=== PATIENT | male | born 1960 | race Caucasian/White ===

== ENCOUNTER 2021-10-21 09:17 | Emergency (ER) | payer BC, MEDICAID ==
[~2021-10-21] VITALS: Ht 175.3 cm; Wt 75.0 kg
[~2021-10-21 09:17] MED LIST: ALBU6.7H9 INH; NO HOME MEDS
[2021-10-21 09:26] VITALS: BP 171/101
[2021-10-21 09:57] LABS: BASOPHILS % (AUTO) 0.3 % (0-1); EOSINOPHILS # (AUTO) 0.1 X10'3 (0-0.9); EOSINOPHILS % (AUTO) 0.7 % (0-6); HEMATOCRIT 36.3 % (42.0-52.0); HEMOGLOBIN 12.2 g/dl (14.0-17.9); LYMPHOCYTES # (AUTO) 0.9 X10'3 (1.1-4.8); LYMPHOCYTES % (AUTO) 10.9 % (21-51); MEAN CORPUSCULAR HEMOGLOBIN 28.2 PG (27.0-31.0); MEAN CORPUSCULAR HGB CONC 33.6 g/dL (33.0-36.5); MEAN CORPUSCULAR VOLUME 84.1 FL (78-98); MEAN PLATELET VOLUME 7.4 FL (7.4-10.4); MONOCYTES # (AUTO) 0.5 X10'3 (0-0.9); MONOCYTES % (AUTO) 6.6 % (2-12); NEUTROPHILS # (AUTO) 6.4 X10'3 (1.8-7.7); NEUTROPHILS % (AUTO) 81.5 % (42-75); PLATELET COUNT 220 X10'3 (140-440); RED BLOOD COUNT 4.32 X10'6 (4.70-6.10); RED CELL DISTRIBUTION WIDTH 14.1 % (11.5-14.5); WHITE BLOOD COUNT 7.8 X10'3 (4.5-11.0)
[2021-10-21 10:08] LABS: ALANINE AMINOTRANSFERASE 17 U/L (12-78); ALBUMIN/GLOBULIN RATIO 0.7 (1.1-1.5); ALKALINE PHOSPHATASE 141 IU/L (46-116); ANION GAP 10 (8-16); ASPARTATE AMINO TRANSFERASE 14 U/L (10-37); BILIRUBIN,TOTAL 0.6 MG/DL (0.1-1.0); BLOOD UREA NITROGEN 11 MG/DL (7-18); CALCIUM 9.2 MG/DL (8.5-10.1); CHLORIDE 101 MMOL/L (99-107); CREATININE 0.92 MG/DL (0.60-1.10); GLUCOSE 238 MG/DL (70-104); POTASSIUM 3.4 MMOL/L (3.5-5.1); SODIUM 140 MMOL/L (135-145); TOTAL CARBON DIOXIDE 28.9 MMOL/L (24-32); TOTAL PROTEIN 7.6 G/DL (6.4-8.2); eGFR 83 ML/MIN
[2021-10-21 10:23] LABS: MONOTEST NEGATIVE (Neg)
== END 2021-10-21 16:16 | disposition left against medical advice (07) ==
LOC: ER 09:18
DX: R22.1 Localized swelling, mass and lump, neck (principal); Z53.21 Procedure and treatment not carried out due to patient leaving prior to being seen by health care provider
CPT/HCPCS: 36415; 80053; 85025; 85651; 86140; 86308

== ENCOUNTER 2023-07-12 08:50 | Inpatient (IN) | payer BC, MEDICAID ==
[~2023-07-12] VITALS: Ht 175.3 cm; Wt 70.0 kg
[~2023-07-12 08:50] MED LIST changes: +ALBU6.7H14 INH; -ALBU6.7H9 INH
[2023-07-12] MEDS ORDERED: TETanus/Pertussis (Acell)/Diphther VAC/PF (Tdap-Adult) 0.5ml syringe IMVAC ONE (12:10)
[2023-07-12] MEDS ORDERED: piperacillin/tazo 3.375gm/50ml 50 ML IV STA (12:45)
[2023-07-12] MEDS ORDERED: normal saline 1000ml 1,000 ML IV ONE ×2 (12:45→21:10)
[2023-07-12] MEDS ORDERED: vancomycin/NS 1 GM ADD-VANTAGE 250 ML X 1 DOSE IV ONE (12:55)
[2023-07-12] MEDS ORDERED: ketorolac trometh. 30mg/ml inj. IV ONE (13:05)
[2023-07-12 13:24] LABS: BASOPHILS % (AUTO) 0 % (0-1); EOSINOPHILS % (AUTO) 0.1 % (0-6); HEMATOCRIT 27.4 % (42.0-52.0); HEMOGLOBIN 8.9 g/dl (14.0-17.9); LYMPHOCYTES # (AUTO) 0.5 X10'3 (1.1-4.8); LYMPHOCYTES % (AUTO) 2.4 % (21-51); MEAN CORPUSCULAR HEMOGLOBIN 27.4 PG (27.0-31.0); MEAN CORPUSCULAR HGB CONC 32.4 g/dL (33.0-36.5); MEAN CORPUSCULAR VOLUME 84.6 FL (78-98); MEAN PLATELET VOLUME 6.6 FL (7.4-10.4); MONOCYTES # (AUTO) 0.6 X10'3 (0-0.9); MONOCYTES % (AUTO) 2.8 % (2-12); NEUTROPHILS # (AUTO) 21.2 X10'3 (1.8-7.7); NEUTROPHILS % (AUTO) 94.7 % (42-75); PLATELET COUNT 455 X10'3 (140-440); RED BLOOD COUNT 3.24 X10'6 (4.70-6.10); RED CELL DISTRIBUTION WIDTH 14.6 % (11.5-14.5); WHITE BLOOD COUNT 22.4 X10'3 (4.5-11.0)
[2023-07-12 14:03] LABS: ALANINE AMINOTRANSFERASE 13 U/L (12-78); ALBUMIN 1.7 G/DL (3.4-5.0); ALBUMIN/GLOBULIN RATIO 0.2 (1.1-1.5); ALKALINE PHOSPHATASE 166 IU/L (46-116); ANION GAP 6 (8-16); ASPARTATE AMINO TRANSFERASE 25 U/L (10-37); BILIRUBIN,TOTAL 0.4 MG/DL (0.1-1.0); BLOOD UREA NITROGEN 25 MG/DL (7-18); BUN/CREATININE RATIO 14.8 (10.0-20.0); CALCIUM 9.7 MG/DL (8.5-10.1); CHLORIDE 98 MMOL/L (99-107); CREATININE 1.69 MG/DL (0.60-1.10); GLUCOSE 175 MG/DL (70-104); MAGNESIUM 1.6 MG/DL (1.5-2.4); SODIUM 131 MMOL/L (135-145); TOTAL CARBON DIOXIDE 27.5 MMOL/L (24-32); TOTAL PROTEIN 8.7 G/DL (6.4-8.2); eCRCL 44 ML/MIN; eGFR 41 ML/MIN
[2023-07-12] MEDS ORDERED: POTASSIUM BICARBONATE/CIT AC 10 MEQ TABLET.EFF PO SCH (15:10)
[2023-07-12] MEDS ORDERED: POTASSIUM BICARBONATE/CIT AC 10 MEQ TABLET.EFF PO ONE (15:10)
[2023-07-12] MEDS ORDERED: ondansetron/PF 4mg/2ml inj IV PRN (16:10)
[2023-07-12] MEDS ORDERED: magnesium hydroxide 30ml (MOM) UD suspension PO PRN (16:10)
[2023-07-12] MEDS ORDERED: potassium Cl 40MEQ/1/2NS 520ml 520 ML IV PRN (16:10)
[2023-07-12] MEDS ORDERED: magnesium Cl slow-release 64mg tablet PO PRN (16:10)
[2023-07-12] MEDS ORDERED: magnesium 2GM in 50ml NS 50 ML IV PRN (16:10)
[2023-07-12] MEDS ORDERED: potassium Cl 20 mEq SR tablet PO PRN (16:10)
[2023-07-12] MEDS ORDERED: magnesium 4gm in 100ml NS 100 ML IV PRN (16:10)
[2023-07-12] MEDS ORDERED: IBUP-862 PO (16:36)
[2023-07-12] MEDS ORDERED: [UNRECOGNIZED DRUG - CODE] PO (16:37)
[2023-07-12] MEDS: normal saline 1000ml 1,000 ML IV SCH (16:58)
[2023-07-12] MEDS: HYDROcodone/acetaminophen 10/325mg tab PO PRN (16:59)
[2023-07-12 17:16] LABS: BILIRUBIN,URINE NEGATIVE (Neg); CLARITY,URINE SLIGHTLY CLOUDY (Clear); COLOR,URINE YELLOW (Yellow); GLUCOSE, URINE 100 mg/dl (Neg); KETONES,URINE NEGATIVE (Neg); LEUKOCYTE ESTERASE ,URINE NEGATIVE (Neg); NITRITES, URINE NEGATIVE (Neg); OCCULT BLOOD,URINE SMALL (Neg); PH,URINE 5.5 (4.8-8.0); PROTEIN,URINE 100 mg/dl (Neg)
--- NOTE | 2023-07-12 17:19 | NUR ---
PT RESTING IN BED- LIKES TO HANG OVER SIDE OF RAIL FOR COMFORT. RIGHT DP AND PT PULSES + PER DOPPLER. PULSES MARKED ON PT.
[2023-07-12 17:22] LABS: UA COLLECTION TYPE CLN CATCH MIDSTREAM
[2023-07-12 17:23] LABS: SQUAMOUS EPITHELIAL CELL,UR FEW /LPF (FEW)
[2023-07-12 17:25] LABS: BACTERIA,URINE FEW /HPF (Neg); HYALINE CASTS 0-3 /LPF (NEGATIVE); TRANSITIONAL EPI CELLS,URINE FEW /HPF; WAXY CASTS,URINE 0-3 /LPF (NEGATIVE)
[2023-07-12 17:26] LABS: RBC,URINE 0-2 /HPF (0-2); WBC,URINE 20-30 /HPF (0-4)
[2023-07-12 17:27] LABS: AMORPHOUS URATES 1+; RENAL CELLS, URINE FEW /HPF
[2023-07-12] MEDS: K and/or MAG REPLACEMENT MC SCH ×2 (20:00→20:18)
[2023-07-12] MEDS ORDERED: metoprolol tartrate 12.5mg (1/2 tablet) PO SCH (20:00)
[2023-07-12] MEDS: heparin, porcine 5000 units/ml vial SQ SCH (20:18)
[2023-07-12] MEDS: acetaminophen 325mg tablet PO PRN (20:33)
[2023-07-12] MEDS: HYDROcodone/acetaminophen 5mg/325mg tablet PO PRN (22:14)
--- NOTE | 2023-07-12 23:30 | NUR ---
REPORT CALLED TO FLOOR RN PT TX TO [id number] BY TECH
--- NOTE | 2023-07-12 23:30 | NUR ---
Patient in room ORTHO 4018. I have received report from NICOL Kasper LVN and had the opportunity to ask questions and assume patient care.
[2023-07-13] MEDS: piperacillin/tazo 3.375gm/50ml 50 ML IV SCH ×3 (00:39→20:47)
[2023-07-13] MEDS: normal saline 1000ml 1,000 ML IV SCH ×2 (00:41→08:07)
[2023-07-13 01:28] VITALS: BP 98/53; PULSE 109; RESP 20; TEMP 98.3; O2SAT 99
--- NOTE | 2023-07-13 04:11 | NUR ---
message left for wound care.
[2023-07-13 06:00] VITALS: BP 110/63; PULSE 85; RESP 20; TEMP 97.8; O2SAT 94
[2023-07-13 06:15] LABS: BASOPHILS % (AUTO) 0.2 % (0-1); EOSINOPHILS % (AUTO) 0.3 % (0-6); HEMOGLOBIN 7.1 g/dl (14.0-17.9); LYMPHOCYTES # (AUTO) 0.5 X10'3 (1.1-4.8); LYMPHOCYTES % (AUTO) 3.9 % (21-51); MEAN CORPUSCULAR HEMOGLOBIN 28.1 PG (27.0-31.0); MEAN CORPUSCULAR HGB CONC 33.1 g/dL (33.0-36.5); MEAN PLATELET VOLUME 6.6 FL (7.4-10.4); MONOCYTES # (AUTO) 0.4 X10'3 (0-0.9); MONOCYTES % (AUTO) 3.4 % (2-12); NEUTROPHILS % (AUTO) 92.2 % (42-75); PLATELET COUNT 257 X10'3 (140-440); RED BLOOD COUNT 2.53 X10'6 (4.70-6.10); RED CELL DISTRIBUTION WIDTH 14.4 % (11.5-14.5)
[2023-07-13 06:24] LABS: % IRON SATURATION 9 % (11-46); IRON 11 UG/DL (53-167); TOTAL IRON BINDING CAPACITY 123 UG/DL (259-388)
--- NOTE | 2023-07-13 06:30 | NUR ---
Problems reprioritized. Patient report given, questions answered & plan of care reviewed with ELIZA Mathis.
[2023-07-13 06:33] LABS: HEMATOCRIT 21.5 % (42.0-52.0)
--- NOTE | 2023-07-13 06:43 | NUR ---
Patient in room ORTHO 4018. I have received report from ELIZA Santana and had the opportunity to ask questions and assume patient care.
[2023-07-13 07:07] LABS: HEMOGLOBIN A1C 6.6 % (4.5-6.2)
[2023-07-13 07:14] LABS: ALBUMIN 1.1 G/DL (3.4-5.0); ANION GAP 7 (8-16); BLOOD UREA NITROGEN 30 MG/DL (7-18); BUN/CREATININE RATIO 18.6 (10.0-20.0); CALCIUM 8.1 MG/DL (8.5-10.1); CHLORIDE 102 MMOL/L (99-107); CREATININE 1.61 MG/DL (0.60-1.10); FERRITIN 380 NG/ML (26-388); GLUCOSE 178 MG/DL (70-104); MAGNESIUM 1.3 MG/DL (1.5-2.4); POTASSIUM 3.6 MMOL/L (3.5-5.1); SODIUM 133 MMOL/L (135-145); TOTAL CARBON DIOXIDE 24.5 MMOL/L (24-32); eCRCL 47 ML/MIN; eGFR 44 ML/MIN
[2023-07-13] MEDS: K and/or MAG REPLACEMENT MC SCH ×2 (08:00→20:00)
[2023-07-13] MEDS: heparin, porcine 5000 units/ml vial SQ SCH ×2 (08:31→20:47)
--- NOTE | 2023-07-13 08:38 | NUR ---
NOTIFIED PHARMACY TO BRING ZOSYN TO FLOOR. WILL CONTINUE TO WAIT TO GET THE MEDICATION
[2023-07-13] MEDS: HYDROcodone/acetaminophen 10/325mg tab PO PRN ×2 (08:42→17:49)
--- NOTE | 2023-07-13 09:37 | NUR ---
MESSAGE: Delfina-leela/neuro- [id number] Pt Rm 4018- MouraHubert- Rober [facility]- 21.5
[2023-07-13 10:00] VITALS: BP 114/68; PULSE 103; RESP 19; TEMP 98.2; O2SAT 97
[2023-07-13] MEDS: HYDROcodone/acetaminophen 5mg/325mg tablet PO PRN (13:40)
--- NOTE | 2023-07-13 13:53 | NUR ---
PRESSURE ULCER EDUCATION: DEFINITION: A pressure ulcer is an area of skin that breaks down when you stay in one position too long. The constant pressure against the skin reduces the blood flow to that area and the affected tissue dies. CAUSES: "Being bedridden or in a wheelchair "Fragile skin "Having a chronic condition, such as diabetes or vascular disease "Inability to move certain parts of your body without assistance "Older age "Incontinence of urine or stool SYMPTOMS: "A reddened area that DOES NOT turn white when pressed on - this can be the beginning of a pressure ulcer "A blister, deep sore or a crater - these can be advanced pressure ulcers FIRST AID: "Relieve the pressure on this area "Keep the area clean and dry "Call your primary doctor if you see any of the above symptoms "DO NOT massage the area "DO NOT use a donut shaped or ring shaped pillow- these actually interfere with the blood flow and cause complications PREVENTION: "Check for pressure ulcers everyday "Change position at least every two hours to relieve pressure "Use items that help relieve pressure- pillows, sheepskin, foam padding, and powders. "Keep skin clean and dry "Eat healthy well balanced meals "Exercise daily IF YOU SEE ANY OF THESE SYMPTOMS WHILE IN THE HOSPITAL - TELL YOUR NURSE IMMEDIATELY. IF YOU SEE ANY OF THESE SYMPTOMS WHILE AT HOME OR HAVE ANY QUESTIONS OR CONCERNS ABOUT PRESSURE ULCERS - CALL YOUR PRIMARY DOCTOR IMMEDIATELY. Addendum: 07/13/23 at 1353 by Rosalie Mitchell LVN Amended: Links added.
[2023-07-13] MEDS ORDERED: vancomycin/NS 1 GM ADD-VANTAGE 250 ML IV SCH (14:00)
--- NOTE | 2023-07-13 14:30 | NUR ---
IV was pulled out and I attempted twice and was not successful. Will get another nurse to start IV
[2023-07-13] MEDS ORDERED: dextrose 50%-water 50ml dispensing syringe IV PRN ×2 (15:50)
[2023-07-13] MEDS ORDERED: glucagon, human recombinant 1mg kit SUBCUT PRN (15:50)
[2023-07-13] MEDS ORDERED: DEXTROSE 15 GM of carb/4 tabs (each vial/BOTTLE has 4 tablets) PO PRN ×2 (15:50)
[2023-07-13] MEDS ORDERED: MESSAGE TO PHARMACY PO ONE (15:50)
--- NOTE | 2023-07-13 17:30 | NUR ---
pigment making supervisor successfully started an IV and will continue IV fluids and antibiotics per md orders
--- NOTE | 2023-07-13 17:40 | NUR ---
nursing supervisor modern languages is attempting IV currently after 4 failed attempts (two different RN's). Still have not been able to get vanco adminstered.
[2023-07-13 18:00] VITALS: BP 146/80; PULSE 121; RESP 19; TEMP 100.1; O2SAT 97
--- NOTE | 2023-07-13 18:45 | NUR ---
Problems reprioritized. Patient report given, questions answered & plan of care reviewed with TENZIN Albarado.
[2023-07-13 20:01] LABS: MEAN CORPUSCULAR HEMOGLOBIN 27.7 PG (27.0-31.0); MEAN CORPUSCULAR HGB CONC 32.8 g/dL (33.0-36.5); MEAN CORPUSCULAR VOLUME 84.6 FL (78-98); MEAN PLATELET VOLUME 6.4 FL (7.4-10.4); PLATELET COUNT 305 X10'3 (140-440); RED BLOOD COUNT 2.47 X10'6 (4.70-6.10); RED CELL DISTRIBUTION WIDTH 14.8 % (11.5-14.5); WHITE BLOOD COUNT 14.2 X10'3 (4.5-11.0)
[2023-07-13 20:40] LABS: HEMATOCRIT 20.9 % (42.0-52.0); HEMOGLOBIN 6.9 g/dl (14.0-17.9)
[2023-07-13] MEDS: mag hydrox/Alum hydrox/simeth 30ml oral suspension PO PRN (20:46)
--- NOTE | 2023-07-13 21:00 | NUR ---
Paged dr Grant with critical results "Notification ofCritical labs for 4018 Hubert Moura. Hemoglobin 6.9 Hematocrit 20.9. Please call Per [facility] EXT [phone] with new orders " received order for type and screen and for patient to receive 1 unit PRBC
--- NOTE | 2023-07-13 21:12 | NUR ---
paged Dr. Grant "r/t [phone]. pt has no transfusion informed consent, please call [facility] ext [phone]"
[2023-07-13 22:00] VITALS: BP 126/67; PULSE 118; RESP 17; TEMP 99.3; O2SAT 96
[2023-07-13] MEDS: insulin glargine (Lantus) pen - multi-dose SQ SCH (23:22)
[2023-07-14] VITALS (8 sets, daily range): BP systolic 116–136; BP diastolic 62–75; PULSE 92–110; RESP 12–28; TEMP 98.2–100.5; O2SAT 92–97
[2023-07-14] MEDS: piperacillin/tazo 3.375gm/50ml 50 ML IV SCH ×2 (02:43→08:04)
[2023-07-14] MEDS: HYDROcodone/acetaminophen 10/325mg tab PO PRN ×4 (02:45→22:18)
--- NOTE | 2023-07-14 06:10 | NUR ---
Patient in room ORTHO 4018. I have received report from TENZIN Albarado and had the opportunity to ask questions and assume patient care.
[2023-07-14 06:22] LABS: BASOPHILS % (AUTO) 0.1 % (0-1); EOSINOPHILS % (AUTO) 0.2 % (0-6); HEMOGLOBIN 7.3 g/dl (14.0-17.9); LYMPHOCYTES # (AUTO) 0.7 X10'3 (1.1-4.8); LYMPHOCYTES % (AUTO) 5.2 % (21-51); MEAN CORPUSCULAR HEMOGLOBIN 28.9 PG (27.0-31.0); MEAN CORPUSCULAR HGB CONC 33.9 g/dL (33.0-36.5); MEAN CORPUSCULAR VOLUME 85.3 FL (78-98); MEAN PLATELET VOLUME 6.4 FL (7.4-10.4); MONOCYTES # (AUTO) 0.6 X10'3 (0-0.9); MONOCYTES % (AUTO) 4.6 % (2-12); NEUTROPHILS % (AUTO) 89.9 % (42-75); PLATELET COUNT 277 X10'3 (140-440); RED BLOOD COUNT 2.51 X10'6 (4.70-6.10); RED CELL DISTRIBUTION WIDTH 15.1 % (11.5-14.5); WHITE BLOOD COUNT 13.4 X10'3 (4.5-11.0)
[2023-07-14 06:28] LABS: HEMATOCRIT 21.4 % (42.0-52.0)
[2023-07-14 06:49] LABS: ANION GAP 5 (8-16); BLOOD UREA NITROGEN 24 MG/DL (7-18); BUN/CREATININE RATIO 18.2 (10.0-20.0); CALCIUM 8.1 MG/DL (8.5-10.1); CHLORIDE 104 MMOL/L (99-107); CREATININE 1.32 MG/DL (0.60-1.10); GLUCOSE 139 MG/DL (70-104); MAGNESIUM 1.9 MG/DL (1.5-2.4); POTASSIUM 3.2 MMOL/L (3.5-5.1); SODIUM 136 MMOL/L (135-145); TOTAL CARBON DIOXIDE 27.3 MMOL/L (24-32); eCRCL 57 ML/MIN; eGFR 55 ML/MIN
--- NOTE | 2023-07-14 07:10 | NUR ---
MESSAGE: cherry-ortho/neuro Pt Rm 4018- Hubert Moura- Critical lab value- 21.4 HC
[2023-07-14] MEDS: K and/or MAG REPLACEMENT MC SCH ×2 (08:00→19:25)
[2023-07-14] MEDS: heparin, porcine 5000 units/ml vial SQ SCH ×2 (08:06→19:19)
[2023-07-14] MEDS: ferrous sulfate 325mg tablet PO SCH (08:06)
[2023-07-14] MEDS: normal saline 1000ml 1,000 ML IV SCH ×2 (08:10→19:19)
[2023-07-14] MEDS: potassium Cl 20 mEq SR tablet PO PRN ×3 (08:17→19:18)
[2023-07-14] MEDS: vancomycin/NS 1 GM ADD-VANTAGE 250 ML IV SCH ×2 (09:18→19:18)
--- NOTE | 2023-07-14 09:29 | NUR ---
pt did not eat enough or have high enough BS to need any insulin for after breakfast and will continue to monitor patients BS.
[2023-07-14] MEDS: insulin Lispro (HumaLOG) vial - multi-dose SQ SCH ×2 (13:33→18:35)
[2023-07-14] MEDS ORDERED: methadone 10mg tablet PO SCH (17:30)
--- NOTE | 2023-07-14 18:10 | NUR ---
Patient in room ORTHO 4018. I have received report from ELIZA Mathis and had the opportunity to ask questions and assume patient care.
--- NOTE | 2023-07-14 18:53 | NUR ---
Problems reprioritized. Patient report given, questions answered & plan of care reviewed with ELIZA Santana.
[2023-07-14] MEDS: insulin glargine (Lantus) pen - multi-dose SQ SCH (20:22)
[2023-07-14] MEDS: mag hydrox/Alum hydrox/simeth 30ml oral suspension PO PRN (20:53)
[2023-07-14 21:45] LABS: HEMATOCRIT 23.4 % (42.0-52.0); HEMOGLOBIN 7.7 g/dl (14.0-17.9); MEAN CORPUSCULAR HEMOGLOBIN 27.9 PG (27.0-31.0); MEAN CORPUSCULAR HGB CONC 33.1 g/dL (33.0-36.5); MEAN CORPUSCULAR VOLUME 84.3 FL (78-98); MEAN PLATELET VOLUME 6.3 FL (7.4-10.4); PLATELET COUNT 327 X10'3 (140-440); RED BLOOD COUNT 2.77 X10'6 (4.70-6.10); RED CELL DISTRIBUTION WIDTH 15.1 % (11.5-14.5); WHITE BLOOD COUNT 12.4 X10'3 (4.5-11.0)
[2023-07-15] MEDS: HYDROcodone/acetaminophen 10/325mg tab PO PRN ×2 (05:28→10:17)
[2023-07-15 06:00] VITALS: BP 154/85; PULSE 97; RESP 18; TEMP 97.3; O2SAT 96
--- NOTE | 2023-07-15 06:06 | NUR ---
Problems reprioritized. Patient report given, questions answered & plan of care reviewed with ELIZA Mathis.
[2023-07-15 06:42] LABS: BASOPHILS % (AUTO) 0.4 % (0-1); EOSINOPHILS # (AUTO) 0.1 X10'3 (0-0.9); EOSINOPHILS % (AUTO) 0.6 % (0-6); HEMOGLOBIN 8.1 g/dl (14.0-17.9); LYMPHOCYTES # (AUTO) 0.8 X10'3 (1.1-4.8); LYMPHOCYTES % (AUTO) 7.6 % (21-51); MEAN CORPUSCULAR HEMOGLOBIN 28.7 PG (27.0-31.0); MEAN CORPUSCULAR HGB CONC 33.5 g/dL (33.0-36.5); MEAN CORPUSCULAR VOLUME 85.5 FL (78-98); MEAN PLATELET VOLUME 6.2 FL (7.4-10.4); MONOCYTES # (AUTO) 0.4 X10'3 (0-0.9); MONOCYTES % (AUTO) 4.2 % (2-12); NEUTROPHILS # (AUTO) 9.1 X10'3 (1.8-7.7); NEUTROPHILS % (AUTO) 87.2 % (42-75); PLATELET COUNT 307 X10'3 (140-440); RED BLOOD COUNT 2.81 X10'6 (4.70-6.10); RED CELL DISTRIBUTION WIDTH 14.8 % (11.5-14.5); WHITE BLOOD COUNT 10.4 X10'3 (4.5-11.0)
--- NOTE | 2023-07-15 06:48 | NUR ---
Patient in room ORTHO 4018. I have received report from ELIZA Santana and had the opportunity to ask questions and assume patient care.
[2023-07-15 06:51] LABS: ANION GAP 5 (8-16); BLOOD UREA NITROGEN 22 MG/DL (7-18); BUN/CREATININE RATIO 19.8 (10.0-20.0); CALCIUM 7.8 MG/DL (8.5-10.1); CHLORIDE 105 MMOL/L (99-107); CREATININE 1.11 MG/DL (0.60-1.10); GLUCOSE 85 MG/DL (70-104); MAGNESIUM 1.9 MG/DL (1.5-2.4); POTASSIUM 3.7 MMOL/L (3.5-5.1); SODIUM 136 MMOL/L (135-145); TOTAL CARBON DIOXIDE 25.6 MMOL/L (24-32); eCRCL 67 ML/MIN; eGFR 67 ML/MIN
[2023-07-15] MEDS: vancomycin/NS 1 GM ADD-VANTAGE 250 ML IV SCH ×2 (07:23→21:14)
[2023-07-15] MEDS: heparin, porcine 5000 units/ml vial SQ SCH ×2 (07:24→19:46)
[2023-07-15] MEDS: ferrous sulfate 325mg tablet PO SCH (07:26)
[2023-07-15] MEDS: normal saline 1000ml 1,000 ML IV SCH (07:34)
[2023-07-15] MEDS: K and/or MAG REPLACEMENT MC SCH ×2 (07:37→20:00)
[2023-07-15 07:42] LABS: TOTAL CELLS COUNTED 100
[2023-07-15 07:43] LABS: PLATELET ESTIMATE NORMAL; STOMATOCYTES FEW; TOXIC GRANULATION 1+
[2023-07-15] MEDS: insulin Lispro (HumaLOG) vial - multi-dose SQ SCH ×2 (09:14→13:27)
[2023-07-15 10:00] VITALS: BP 142/83; RESP 15; TEMP 98.1; O2SAT 99
[2023-07-15] MEDS ORDERED: morphine ER 15mg tablet PO PRN (13:30)
--- NOTE | 2023-07-15 13:59 | NUR ---
DIABETIC FOOT CARE EDUCATION PROVIDED BY WOUND CARE * Wash your feet daily with lukewarm water and soap. * Dry your feet well, especially between the toes. * Keep the skin moisturized with lotion, but do not apply it between the toes. * Check your feet for blisters, cuts or sores. * Use an emery board to shape your toenails even with the ends of your toes. * Change daily into clean, soft socks or stockings, not too big or too small. * Keep your feet warm and dry. * Preferably wear special padded socks and shoes that fit well. * Never walk barefoot indoors or outdoors. * Examine your shoes everyday for cracks, angela, nails or anything that could hurt your feet. * Tell your doctor if you find any of these problems or have any concerns after examining your feet. Addendum: 07/15/23 at 1400 by Rosalie Mitchell LVN Amended: Links added.
[2023-07-15 18:00] VITALS: BP 148/80; PULSE 102; RESP 16; TEMP 97.9; O2SAT 96
[2023-07-15] MEDS: acetaminophen 325mg tablet PO PRN (18:40)
--- NOTE | 2023-07-15 18:58 | NUR ---
Problems reprioritized. Patient report given, questions answered & plan of care reviewed with Yris Torres RN.
--- NOTE | 2023-07-15 18:59 | NUR ---
Patient in room ORTHO 4018. I have received report from ELIZA TONG and had the opportunity to ask questions and assume patient care.
[2023-07-15] MEDS ORDERED: sodium ferric gluc complex inj 125 MG in normal saline 100ml IV soln 100 ML IV ONE (19:05)
[2023-07-15] MEDS ORDERED: VANCOMYCIN LEVEL IV ONE (19:30)
[2023-07-15] MEDS: morphine ER 15mg tablet PO SCH (19:47)
[2023-07-15] MEDS: piperacillin/tazo 4.5gm/100ml 100 ML IV SCH (20:12)
[2023-07-15] MEDS: insulin glargine (Lantus) pen - multi-dose SQ SCH (21:00)
[2023-07-15 22:00] VITALS: BP 150/76; PULSE 108; RESP 15; TEMP 99.1; O2SAT 96
[2023-07-16] MEDS: normal saline 1000ml 1,000 ML IV SCH ×2 (04:26→22:50)
[2023-07-16 06:00] VITALS: BP 148/76; PULSE 97; RESP 16; TEMP 97.8; O2SAT 96
--- NOTE | 2023-07-16 06:33 | NUR ---
Problems reprioritized. Patient report given, questions answered & plan of care reviewed with ELIZA ELY.
[2023-07-16 06:54] LABS: BASOPHILS % (AUTO) 0.2 % (0-1); EOSINOPHILS # (AUTO) 0.1 X10'3 (0-0.9); HEMATOCRIT 23.2 % (42.0-52.0); HEMOGLOBIN 7.6 g/dl (14.0-17.9); LYMPHOCYTES # (AUTO) 0.9 X10'3 (1.1-4.8); LYMPHOCYTES % (AUTO) 6.9 % (21-51); MEAN CORPUSCULAR HEMOGLOBIN 27.9 PG (27.0-31.0); MEAN CORPUSCULAR HGB CONC 32.9 g/dL (33.0-36.5); MEAN CORPUSCULAR VOLUME 84.9 FL (78-98); MEAN PLATELET VOLUME 6.1 FL (7.4-10.4); MONOCYTES # (AUTO) 0.7 X10'3 (0-0.9); MONOCYTES % (AUTO) 5.4 % (2-12); NEUTROPHILS # (AUTO) 10.8 X10'3 (1.8-7.7); NEUTROPHILS % (AUTO) 86.5 % (42-75); PLATELET COUNT 279 X10'3 (140-440); RED BLOOD COUNT 2.74 X10'6 (4.70-6.10); RED CELL DISTRIBUTION WIDTH 14.8 % (11.5-14.5); WHITE BLOOD COUNT 12.4 X10'3 (4.5-11.0)
[2023-07-16 07:04] LABS: ANION GAP 4 (8-16); BLOOD UREA NITROGEN 17 MG/DL (7-18); BUN/CREATININE RATIO 15.9 (10.0-20.0); CALCIUM 7.8 MG/DL (8.5-10.1); CHLORIDE 102 MMOL/L (99-107); CREATININE 1.07 MG/DL (0.60-1.10); GLUCOSE 112 MG/DL (70-104); MAGNESIUM 1.7 MG/DL (1.5-2.4); POTASSIUM 3.5 MMOL/L (3.5-5.1); SODIUM 133 MMOL/L (135-145); TOTAL CARBON DIOXIDE 27.1 MMOL/L (24-32); eCRCL 70 ML/MIN; eGFR 70 ML/MIN
[2023-07-16] MEDS: piperacillin/tazo 4.5gm/100ml 100 ML IV SCH ×2 (07:10→19:53)
[2023-07-16] MEDS: HYDROcodone/acetaminophen 5mg/325mg tablet PO PRN ×3 (07:10→22:47)
[2023-07-16 07:34] LABS: MICROCYTOSIS 1+; PLATELET ESTIMATE NORMAL; STOMATOCYTES FEW; TOTAL CELLS COUNTED 100
[2023-07-16] MEDS: K and/or MAG REPLACEMENT MC SCH ×2 (08:00→20:00)
[2023-07-16] MEDS: morphine ER 15mg tablet PO SCH ×2 (08:37→19:47)
[2023-07-16] MEDS: ferrous sulfate 325mg tablet PO SCH (08:37)
[2023-07-16] MEDS: heparin, porcine 5000 units/ml vial SQ SCH ×2 (08:38→19:47)
[2023-07-16] MEDS: vancomycin/NS 1 GM ADD-VANTAGE 250 ML IV SCH ×2 (08:39→19:53)
[2023-07-16] MEDS: insulin Lispro (HumaLOG) vial - multi-dose SQ SCH ×3 (09:56→19:34)
[2023-07-16 10:00] VITALS: BP 129/68; PULSE 96; RESP 18; TEMP 97.4; O2SAT 95
[2023-07-16] MEDS: sodium ferric gluc complex inj 125 MG in normal saline 100ml IV soln 100 ML IV SCH (11:26)
[2023-07-16 18:00] VITALS: BP 132/72; PULSE 78; RESP 16; TEMP 97.4; O2SAT 96
[2023-07-16] MEDS: insulin glargine (Lantus) pen - multi-dose SQ SCH (21:00)
[2023-07-16 22:00] VITALS: BP 144/83; PULSE 96; RESP 16; TEMP 98.2; O2SAT 96
[2023-07-17] MEDS: HYDROcodone/acetaminophen 5mg/325mg tablet PO PRN ×3 (05:58→21:58)
[2023-07-17 06:00] VITALS: BP 142/74; PULSE 91; RESP 16; TEMP 97.9; O2SAT 98
--- NOTE | 2023-07-17 06:30 | NUR ---
Problems reprioritized. Patient report given, questions answered & plan of care reviewed with TENZIN VERMA.
[2023-07-17 06:44] LABS: BASOPHILS % (AUTO) 0.3 % (0-1); EOSINOPHILS # (AUTO) 0.2 X10'3 (0-0.9); EOSINOPHILS % (AUTO) 1.5 % (0-6); HEMATOCRIT 24.8 % (42.0-52.0); HEMOGLOBIN 8.1 g/dl (14.0-17.9); LYMPHOCYTES # (AUTO) 0.9 X10'3 (1.1-4.8); LYMPHOCYTES % (AUTO) 7.5 % (21-51); MEAN CORPUSCULAR HEMOGLOBIN 27.9 PG (27.0-31.0); MEAN CORPUSCULAR HGB CONC 32.8 g/dL (33.0-36.5); MEAN CORPUSCULAR VOLUME 85.1 FL (78-98); MONOCYTES # (AUTO) 0.5 X10'3 (0-0.9); NEUTROPHILS # (AUTO) 10.6 X10'3 (1.8-7.7); NEUTROPHILS % (AUTO) 86.7 % (42-75); PLATELET COUNT 306 X10'3 (140-440); RED BLOOD COUNT 2.91 X10'6 (4.70-6.10); RED CELL DISTRIBUTION WIDTH 14.4 % (11.5-14.5); WHITE BLOOD COUNT 12.3 X10'3 (4.5-11.0)
[2023-07-17 06:48] LABS: ALBUMIN 1.1 G/DL (3.4-5.0); ANION GAP 2 (8-16); BLOOD UREA NITROGEN 14 MG/DL (7-18); BUN/CREATININE RATIO 13.5 (10.0-20.0); CALCIUM 7.7 MG/DL (8.5-10.1); CHLORIDE 102 MMOL/L (99-107); CREATININE 1.04 MG/DL (0.60-1.10); GLUCOSE 119 MG/DL (70-104); MAGNESIUM 1.7 MG/DL (1.5-2.4); POTASSIUM 3.6 MMOL/L (3.5-5.1); SODIUM 132 MMOL/L (135-145); TOTAL CARBON DIOXIDE 28.3 MMOL/L (24-32); eCRCL 72 ML/MIN; eGFR 72 ML/MIN
[2023-07-17 07:18] LABS: MICROCYTOSIS 1+; PLATELET ESTIMATE NORMAL; TOTAL CELLS COUNTED 100
[2023-07-17] MEDS: K and/or MAG REPLACEMENT MC SCH ×2 (08:00→20:00)
[2023-07-17] MEDS: ferrous sulfate 325mg tablet PO SCH (08:44)
[2023-07-17] MEDS: morphine ER 15mg tablet PO SCH ×2 (08:44→19:46)
[2023-07-17] MEDS: heparin, porcine 5000 units/ml vial SQ SCH ×2 (08:45→19:47)
[2023-07-17] MEDS: insulin Lispro (HumaLOG) vial - multi-dose SQ SCH ×2 (08:53→19:07)
[2023-07-17] MEDS: sodium ferric gluc complex inj 125 MG in normal saline 100ml IV soln 100 ML IV SCH (09:24)
[2023-07-17] MEDS: vancomycin/NS 1 GM ADD-VANTAGE 250 ML IV SCH ×2 (09:24→19:47)
[2023-07-17 10:00] VITALS: BP 133/79; PULSE 104; RESP 18; TEMP 97.9; O2SAT 100
--- NOTE | 2023-07-17 11:11 | NUR ---
Initial: Pt admit for sepsis secondary to right leg cellulitis and APOLONIA. Pt seen by wound care, per note pt with a blister to right great toe, DFU right lateral 5th metatarsal head with intact dry black eschar, and two open areas to left plantar foot/heel. Pt has been on a regular diet and with fluctuating PO intake, documented with average 31% PO intake x 4 meals dinner 07/13 to lunch 07/15 (documented 0% PO intake at dinner 07/15 though with 34 g CHO consumed, unsure of accurate intake), though with 75-100% PO intake all surrounding meals making average PO intake 65% since admit meeting 89% estimated energy needs and 65% estimated protein needs. No nutrition intervention to be implemented at this time given improved PO intake (average 81% since 07/16 meeting 100% estimated energy needs and 81% estimated protein needs). LBM 07/15 per EMR. PRN bowel care available. Will continue to follow and make recommendations as appropriate. Recommendations: 1) Continue regular diet (T2DM well controlled, A1c 6.6%) 2) Monitor need for ONS/additional protein 3) Routine bowel care 4) Scaled weight this admit; subsequent weekly scaled weights Addendum: 07/17/23 at [address] Amended: Links added.
[2023-07-17] MEDS: piperacillin/tazo 4.5gm/100ml 100 ML IV SCH ×2 (12:06→19:47)
[2023-07-17] MEDS: lisinopril 5mg tablet PO SCH (12:40)
[2023-07-17] MEDS: normal saline 1000ml 1,000 ML IV SCH ×2 (15:38→18:55)
[2023-07-17 18:00] VITALS: BP 123/72; PULSE 88; RESP 18; TEMP 97; O2SAT 99
--- NOTE | 2023-07-17 18:29 | NUR ---
Problems reprioritized. Patient report given, questions answered & plan of care reviewed with ELIZA Swann.
[2023-07-17] MEDS: insulin glargine (Lantus) pen - multi-dose SQ SCH (21:00)
[2023-07-17 22:00] VITALS: BP_SYST 123; BP_SYST 143; BP_DIAS 72; BP_DIAS 76; PULSE 88; PULSE 96; RESP 16; RESP 18; TEMP 97; TEMP 98.3; O2SAT 97; O2SAT 99
[2023-07-18 06:00] VITALS: BP 160/83; PULSE 86; RESP 16; TEMP 98.3; O2SAT 97
--- NOTE | 2023-07-18 06:20 | NUR ---
Patient in room ORTHO 4018. I have received report from Yris kang and had the opportunity to ask questions and assume patient care.
--- NOTE | 2023-07-18 06:22 | NUR ---
Problems reprioritized. Patient report given, questions answered & plan of care reviewed with ELIZA SPENCE.
[2023-07-18] MEDS: K and/or MAG REPLACEMENT MC SCH ×2 (07:23→19:28)
[2023-07-18 07:26] VITALS: RESP 16; O2SAT 97
[2023-07-18] MEDS: vancomycin/NS 1 GM ADD-VANTAGE 250 ML IV SCH ×2 (07:26→19:27)
[2023-07-18] MEDS: atenolol 50mg tablet PO SCH (07:33)
[2023-07-18] MEDS: lisinopril 5mg tablet PO SCH (07:33)
[2023-07-18] MEDS: ferrous sulfate 325mg tablet PO SCH (07:33)
[2023-07-18] MEDS: morphine ER 15mg tablet PO SCH ×2 (07:33→19:27)
[2023-07-18] MEDS: heparin, porcine 5000 units/ml vial SQ SCH ×2 (07:34→19:27)
[2023-07-18] MEDS ORDERED: lisinopril 5mg tablet PO SCH (08:00)
[2023-07-18] MEDS: insulin Lispro (HumaLOG) vial - multi-dose SQ SCH ×3 (08:36→19:26)
[2023-07-18] MEDS: sodium ferric gluc complex inj 125 MG in normal saline 100ml IV soln 100 ML IV SCH (09:35)
[2023-07-18 10:00] VITALS: BP 129/65; PULSE 79; RESP 13; TEMP 98.5; O2SAT 96
[2023-07-18] MEDS: piperacillin/tazo 4.5gm/100ml 100 ML IV SCH ×2 (10:39→22:17)
[2023-07-18] MEDS: normal saline 1000ml 1,000 ML IV SCH (12:51)
[2023-07-18 16:05] LABS: ALANINE AMINOTRANSFERASE 15 U/L (12-78); ALBUMIN 1.1 G/DL (3.4-5.0); ALBUMIN/GLOBULIN RATIO 0.2 (1.1-1.5); ALKALINE PHOSPHATASE 258 IU/L (46-116); ANION GAP 3 (8-16); ASPARTATE AMINO TRANSFERASE 31 U/L (10-37); BILIRUBIN,TOTAL 0.3 MG/DL (0.1-1.0); BLOOD UREA NITROGEN 13 MG/DL (7-18); BUN/CREATININE RATIO 10.4 (10.0-20.0); CALCIUM 7.6 MG/DL (8.5-10.1); CHLORIDE 103 MMOL/L (99-107); CREATININE 1.25 MG/DL (0.60-1.10); GLUCOSE 121 MG/DL (70-104); POTASSIUM 3.5 MMOL/L (3.5-5.1); SODIUM 135 MMOL/L (135-145); TOTAL CARBON DIOXIDE 28.9 MMOL/L (24-32); TOTAL PROTEIN 6.7 G/DL (6.4-8.2); eCRCL 60 ML/MIN; eGFR 58 ML/MIN
[2023-07-18] MEDS: HYDROcodone/acetaminophen 5mg/325mg tablet PO PRN (16:47)
[2023-07-18 18:00] VITALS: BP 134/69; PULSE 79; RESP 15; TEMP 97.5; O2SAT 96
--- NOTE | 2023-07-18 18:21 | NUR ---
Problems reprioritized. Patient report given, questions answered & plan of care reviewed with Yris Perez
[2023-07-18 20:10] VITALS: RESP 18; O2SAT 97
[2023-07-18] MEDS: insulin glargine (Lantus) pen - multi-dose SQ SCH (21:00)
[2023-07-18 22:00] VITALS: BP 131/73; PULSE 80; RESP 18; TEMP 98.7; O2SAT 97
[2023-07-19] MEDS: HYDROcodone/acetaminophen 5mg/325mg tablet PO PRN ×2 (01:58→11:10)
[2023-07-19] MEDS: normal saline 1000ml 1,000 ML IV SCH ×2 (04:25→13:49)
[2023-07-19 06:00] VITALS: BP 113/71; PULSE 78; RESP 16; TEMP 97.9; O2SAT 97
--- NOTE | 2023-07-19 06:10 | NUR ---
Patient in room ORTHO 4018. I have received report from Yris and had the opportunity to ask questions and assume patient care.
--- NOTE | 2023-07-19 06:27 | NUR ---
Problems reprioritized. Patient report given, questions answered & plan of care reviewed with ELIZA Malhotra.
[2023-07-19 07:04] LABS: ALANINE AMINOTRANSFERASE 15 U/L (12-78); ALBUMIN 1.2 G/DL (3.4-5.0); ALBUMIN/GLOBULIN RATIO 0.2 (1.1-1.5); ALKALINE PHOSPHATASE 226 IU/L (46-116); ANION GAP 6 (8-16); ASPARTATE AMINO TRANSFERASE 35 U/L (10-37); BILIRUBIN,TOTAL 0.4 MG/DL (0.1-1.0); BLOOD UREA NITROGEN 12 MG/DL (7-18); BUN/CREATININE RATIO 10.9 (10.0-20.0); CALCIUM 7.9 MG/DL (8.5-10.1); CHLORIDE 104 MMOL/L (99-107); GLUCOSE 95 MG/DL (70-104); POTASSIUM 3.5 MMOL/L (3.5-5.1); SODIUM 136 MMOL/L (135-145); TOTAL CARBON DIOXIDE 26.2 MMOL/L (24-32); eCRCL 68 ML/MIN; eGFR 68 ML/MIN
[2023-07-19] MEDS: atenolol 50mg tablet PO SCH (07:43)
[2023-07-19] MEDS: morphine ER 15mg tablet PO SCH (07:43)
[2023-07-19] MEDS: vancomycin/NS 1 GM ADD-VANTAGE 250 ML IV SCH (07:43)
[2023-07-19] MEDS: lisinopril 5mg tablet PO SCH (07:44)
[2023-07-19] MEDS: heparin, porcine 5000 units/ml vial SQ SCH (07:46)
[2023-07-19] MEDS: K and/or MAG REPLACEMENT MC SCH (08:00)
[2023-07-19 09:44] LABS: BASOPHILS # (AUTO) 0.1 X10'3 (0-0.2); BASOPHILS % (AUTO) 0.5 % (0-1); EOSINOPHILS # (AUTO) 0.2 X10'3 (0-0.9); EOSINOPHILS % (AUTO) 1.3 % (0-6); HEMATOCRIT 22.4 % (42.0-52.0); HEMOGLOBIN 7.3 g/dl (14.0-17.9); LYMPHOCYTES # (AUTO) 1.2 X10'3 (1.1-4.8); LYMPHOCYTES % (AUTO) 10.3 % (21-51); MEAN CORPUSCULAR HGB CONC 32.5 g/dL (33.0-36.5); MEAN PLATELET VOLUME 6.4 FL (7.4-10.4); MONOCYTES # (AUTO) 0.5 X10'3 (0-0.9); NEUTROPHILS # (AUTO) 9.9 X10'3 (1.8-7.7); NEUTROPHILS % (AUTO) 83.9 % (42-75); PLATELET COUNT 253 X10'3 (140-440); RED CELL DISTRIBUTION WIDTH 14.9 % (11.5-14.5); WHITE BLOOD COUNT 11.8 X10'3 (4.5-11.0)
[2023-07-19] MEDS: sodium ferric gluc complex inj 125 MG in normal saline 100ml IV soln 100 ML IV SCH (09:59)
[2023-07-19 10:24] VITALS: BP 142/70; PULSE 74; RESP 18; TEMP 98.2; O2SAT 96
[2023-07-19 10:30] LABS: PLATELET ESTIMATE NORMAL; TOTAL CELLS COUNTED 100
[2023-07-19 10:31] LABS: ANISOCYTOSIS FEW; MICROCYTOSIS FEW
--- NOTE | 2023-07-19 10:40 | NUR ---
[place] documentation:Tasha I have reviewed and agree with all interventions, assessments performed and documented by ELIZA Cordova.
[2023-07-19] MEDS: piperacillin/tazo 4.5gm/100ml 100 ML IV SCH (11:03)
[2023-07-19] MEDS ORDERED: SULF1TAB49 PO (12:34)
[2023-07-19] MEDS ORDERED: METF-1203 PO (12:38)
[2023-07-19] MEDS ORDERED: PANT40TA54 PO (12:41)
[2023-07-19] MEDS ORDERED: FERR324T4 PO (12:42)
[2023-07-19] MEDS ORDERED: EMPA10TA PO (12:59)
[2023-07-19] MEDS ORDERED: ACET-1008 PO (13:04)
[2023-07-19] MEDS ORDERED: ATEN50TA41 PO (13:08)
[2023-07-19] MEDS ORDERED: LISI5TAB22 PO (13:22)
[2023-07-19] MEDS: insulin Lispro (HumaLOG) vial - multi-dose SQ SCH (13:30)
--- NOTE | 2023-07-19 16:06 | NUR ---
Pt D/C per hospitalist. PIV removed, cannula discontinued. All belongings taken home by patient. Discharge instructions reviewed with pt, all concerns and questions addressed. RX e-scribed to pharmacy. Pt wheeled down to car in ED parking lot by staff radiation therapist. He was alert and appropriate when he left in his own private vehicle.
== END 2023-07-19 15:34 | disposition home or self-care (01) | DRG 871 ==
LOC: ER 08:50 → ED HOLD 16:18 → ORTHO 4S 23:40
PROVIDERS: ADMIT Student in an Organized Health Care Education/Training Program; ATTEND Student in an Organized Health Care Education/Training Program
PROC: 30233N1 Transfusion of Nonautologous Red Blood Cells into Peripheral Vein, Percutaneous Approach (ICD-10-PCS; principal; 2023-07-14)
DX: A41.9 Sepsis, unspecified organism (principal); N17.0 Acute kidney failure with tubular necrosis; L03.115 Cellulitis of right lower limb; I96 Gangrene, not elsewhere classified; E11.52 Type 2 diabetes mellitus with diabetic peripheral angiopathy with gangrene; E87.6 Hypokalemia; E11.42 Type 2 diabetes mellitus with diabetic polyneuropathy; L97.519 Non-pressure chronic ulcer of other part of right foot with unspecified severity; D63.8 Anemia in other chronic diseases classified elsewhere; E86.0 Dehydration; Z87.891 Personal history of nicotine dependence
CPT/HCPCS: 36415; 36430; 71045; 73718; 80048; 80053; 80202; 81001; 82728; 82948; 83036; 83540; 83550; 83605; 83735; 84145; 84466; 85007; 85025; 85027; 86885; 86900; 86901; 86920; 87040; 87081; 87088; 90715; 93926; 93971; 97161; 97530; 97535; 99285; A6196; A6223; A6250; A6253; A6258; A6446; A6449; G0378; J1644; J1815; J1885; J2543; J2916; J3370; J3490; J7030; J7040; P9016